=== PATIENT | female | born 1980 | race Caucasian/White ===

== ENCOUNTER 2016-05-27 15:20 | Emergency (ER) | payer OTHER ==
[2016-05-27] MEDS ORDERED: CEPHALEXIN 250 MG CAPSULE PO STA (15:48)
[2016-05-27] MEDS ORDERED: IBUPROFEN 600 MG TABLET PO STA (15:48)
[2016-05-27] MEDS ORDERED: IBUPROFEN 600 MG TABLET PO ONE (15:50)
[2016-05-27] MEDS ORDERED: CEPHALEXIN 250 MG CAPSULE PO ONE (15:50)
== END 2016-05-27 15:54 | disposition home or self-care (01) ==
DX: M54.2 Cervicalgia (principal); I88.9 Nonspecific lymphadenitis, unspecified; F17.200 Nicotine dependence, unspecified, uncomplicated
CPT/HCPCS: 99283; A9270

== ENCOUNTER 2016-06-23 17:16 | Emergency (ER) | payer OTHER | END 2016-06-23 20:16 | disposition home or self-care (01) | DX: Z51.89 Encounter for other specified aftercare (principal); Z98.890 Other specified postprocedural states; Z87.891 Personal history of nicotine dependence ==

== ENCOUNTER 2016-07-23 22:31 | Emergency (ER) | payer OTHER ==
[2016-07-23] MEDS ORDERED: BACITRACIN OINT TOP STA (23:38)
== END 2016-07-23 23:43 | disposition home or self-care (01) ==
DX: Z48.01 Encounter for change or removal of surgical wound dressing (principal)

== ENCOUNTER 2017-04-22 17:41 | Emergency (ER) | payer OTHER ==
[2017-04-22 17:59] VITALS: BP 146/106
[2017-04-22] MEDS ORDERED: LIDOCAINE TOPICAL 4% 50 ML BOTTLE MM STA (18:59)
--- NOTE | 2017-04-22 19:01 | ED Physician Documentation ---
History of Present Illness - Stated complaint Stated Complaint: BILAT EAR PX/SORE THROAT - Chief complaint Chief Complaint: Heent - Additonal information Additional information: hx from pt 37 y/o f several days congestion and PND now with ear pain minimal cough denies preg Review of Systems Constitutional: denies: Fever Ears: reports: Ear pain Nose: reports: Congestion Throat: reports: Sore throat Respiratory: reports: Cough : denies: Now [facility] PD PAST MEDICAL HISTORY - Past Medical History Cardiovascular: Hypertension Respiratory: None Neuro: Headache/migraine Endocrine/Autoimmune: None GI: None 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 : None HEENT: None Psych: Anxiety, Post traumatic stress disorder, Other Musculoskeletal: None Derm: None - Past Surgical History Past Surgical History: Yes /OPTICAL EFFECTS LAYOUT PERSON: section, Hysterectomy - Present Medications Home Medications: Ambulatory Orders Medication Instructions Recorded Confirmed Alprazolam [Xanax] 0.5 mg PO DAILY 05/27/16 04/22/17 Atenolol 40 mg PO DAILY 05/27/16 04/22/17 Esomeprazole Magnesium [Nexium 20 mg PO DAILY 05/27/16 04/22/17 24Hr] FLUoxetine [PROzac] 20 mg PO DAILY 05/27/16 04/22/17 Rizatriptan Benzoate [Maxalt] 10 mg PO DAILY 05/27/16 04/22/17 traMADol [Ultram] 50 mg PO Q4-6H PRN 05/27/16 04/22/17 Ibuprofen [Motrin] 600 mg PO TID PRN 06/23/16 04/22/17 Azithromycin [Zithromax] 250 mg PO DAILY #6 tablet 04/22/17 Lisinopril DAILY 04/22/17 Oxymetazoline HCl [Afrin] 2 spray NS BID PRN #1 bottle 04/22/17 - Allergies Allergies/Adverse Reactions: Allergies Allergy/AdvReac Type Severity Reaction Status Date / Time codeine Allergy Headache Verified 04/22/17 18:11 morphine Allergy Unknown Verified 04/22/17 18:11 - Social History Does the pt smoke?: No Smoking Status: Never smoker Does the pt drink ETOH?: Yes Does the pt have substance abuse?: No - Immunizations Immunizations are current?: Yes - POLST Patient has POLST: No PD ED PE NORMAL - Vitals Vital signs reviewed: Yes - HEENT HEENT: Pharynx benign (mild erythema s exudate). No: Ears normal (R TM erythematous and dull, L TM retracted s erythema) - Neck Neck: Supple, no meningeal sign - Cardiac Cardiac: RRR - Respiratory Respiratory: No respiratory distress, Clear bilaterally Results - Vitals Vitals: Vital Signs - 24 hr 04/22/17 17:56 Temperature 36.4 C L Heart Rate 73 Respiratory 18 Rate Blood Pressure 146/106 H O2 Saturation 100 Oxygen O2 Source Room air Departure - Departure Disposition: Home, Self Care Condition: Good Instructions: ED Otitis Media Acute Ch Follow-Up: Acosta Riojas DO [Primary Care Provider] - Prescriptions: Azithromycin [Zithromax] 250 mg PO DAILY #6 tablet Oxymetazoline HCl [Afrin] 2 spray NS BID PRN #1 bottle PRN Reason: nasal sinus ear congestion Comments: Motrin and tylenol as needed for pain Please get your blood pressure rechecked - it was high today
[2017-04-22] MEDS ORDERED: IBUPROFEN 400 MG TABLET PO STA (19:02)
[2017-04-22] MEDS ORDERED: OXYMETAZOLINE NASAL SPRAY NAS STA (19:02)
== END 2017-04-22 19:10 | disposition home or self-care (01) ==
LOC: ED 17:41
DX: H66.90 Otitis media, unspecified, unspecified ear (principal); I10 Essential (primary) hypertension
CPT/HCPCS: 99283; A9270

== ENCOUNTER 2018-02-22 23:00 | Emergency (ER) | payer OTHER ==
[2018-02-22] MEDS ORDERED: FLUCONAZOLE 100 MG TABLET PO STA (23:44)
[2018-02-22 23:45] LABS: BILIRUBIN,URINE NEGATIVE (NEGATIVE); GLUCOSE, URINE (UA) NEGATIVE (NEGATIVE); KETONES,URINE (UA) NEGATIVE (NEGATIVE); LEUKOCYTE ESTERASE, URINE MODERATE (NEGATIVE); NITRITE,URINE NEGATIVE (NEGATIVE); OCCULT BLOOD,URINE TRACE-INTA (NEGATIVE); PROTEIN,URINE TRACE mg/dL (NEGATIVE); UROBILINOGEN,URINE 0.2 (NORMAL) E.U./dL (NORMAL)
[2018-02-22 23:46] LABS: CLARITY,URINE CLEAR (CLEAR)
--- NOTE | 2018-02-22 23:47 | ED Physician Documentation ---
PD HPI FEMALE - Stated complaint Stated Complaint: FEMALE - Chief complaint Chief Complaint: Abd Pain - History obtained from History obtained from: Patient - History of Present Illness Timing - onset: How many weeks ago (1) Timing - duration: Weeks Timing - details: Gradual onset Pain level max: 5 Pain level max: 5 Associated symptoms: Vaginal pain, Vaginal discharge (itching) - Additional information Additional information: started after taking augmentin Review of Systems Constitutional: denies: Fever Respiratory: denies: Cough GI: denies: Vomiting, Diarrhea PD PAST MEDICAL HISTORY - Past Medical History Past Medical History: Yes Cardiovascular: Hypertension Respiratory: None Neuro: None Endocrine/Autoimmune: None GI: GERD 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 : None HEENT: None Psych: Anxiety, Post traumatic stress disorder, Other Musculoskeletal: None Derm: None - Past Surgical History Past Surgical History: Yes General: Gastric surgery /FIREWALL ADMINISTRATOR: section, Hysterectomy - Present Medications Home Medications: Ambulatory Orders Medication Instructions Recorded Confirmed Alprazolam [Xanax] 0.5 mg PO DAILY 05/27/16 04/22/17 Atenolol 40 mg PO DAILY 05/27/16 04/22/17 Esomeprazole Magnesium [Nexium 20 mg PO DAILY 05/27/16 04/22/17 24Hr] FLUoxetine [PROzac] 20 mg PO DAILY 05/27/16 04/22/17 Rizatriptan Benzoate [Maxalt] 10 mg PO DAILY 05/27/16 04/22/17 Fluconazole [Diflucan] 150 mg PO ONCE #2 tablet 02/22/18 - Allergies Allergies/Adverse Reactions: Allergies Allergy/AdvReac Type Severity Reaction Status Date / Time banana Allergy Anaphylaxis Verified 02/22/18 23:15 codeine Allergy Headache Verified 04/22/17 18:11 morphine Allergy Unknown Verified 04/22/17 18:11 - Social History Does the pt smoke?: No Smoking Status: Never smoker Does the pt drink ETOH?: Yes Does the pt have substance abuse?: No - Immunizations Immunizations are current?: Yes - POLST Patient has POLST: No PD ED PE NORMAL - Vitals Vital signs reviewed: Yes - General General: Alert and oriented X 3, No acute distress - HEENT HEENT: Moist mucous membranes - Neck Neck: Supple, no meningeal sign - Cardiac Cardiac: RRR - Respiratory Respiratory: No respiratory distress, Clear bilaterally - Abdomen Abdomen: Soft, Non tender, Non distended - Female Female : Pt declined - Back Back: No CVA TTP - Derm Derm: Warm and dry - Neuro Neuro: Alert and oriented X 3 Results - Vitals Vitals: Vital Signs - 24 hr 02/22/18 02/22/18 23:10 23:52 Temperature 36.5 C 36.6 C Heart Rate 63 72 Respiratory 16 16 Rate Blood Pressure 174/105 H 150/98 H O2 Saturation 99 100 Oxygen O2 Source Room air - Labs Labs: Laboratory Tests 02/22/18 23:40 Urine Color YELLOW Urine Clarity CLEAR Urine pH 6.0 Ur Specific [place] >=1.030 H Urine Protein TRACE Urine Glucose (UA) NEGATIVE Urine Ketones NEGATIVE Urine Occult Blood TRACE-INTA Urine Nitrite NEGATIVE Urine Bilirubin NEGATIVE Urine Urobilinogen 0.2 (NORMAL) Ur Leukocyte Esterase MODERATE H Urine RBC 6-10 H Urine WBC 6-10 H Ur Squamous Epith Cells MANY Squamous H Urine Bacteria Few Urine Mucus Moderate Strands Ur Microscopic Review INDICATED Urine Culture Comments NOT INDICATED PD MEDICAL DECISION MAKING - ED course Complexity details: considered differential, d/w patient ED course: Patient is a 37-year-old female with what sounds like a vaginal yeast infection after taking Augmentin. Will place on Diflucan and see how she progresses. She declines a pelvic examination at this time, but does understand that if she fails to improve as expected, she will need to follow-up closely with her doctor for a full pelvic examination. Patient counseled regarding signs and symptoms for which I believe and urgent re-evaluation would be necessary. Patient with good understanding of and agreement to plan and is comfortable going home at this time This document was made in part using voice recognition software. While efforts are made to proofread this document, sound alike and grammatical errors may occur. Departure - Departure Disposition: 01 Home, Self Care Clinical Impression: Vaginal candidiasis Condition: Good Instructions: ED Vaginal Infec Fungal Sirena Follow-Up: Acosta Riojas DO [Primary Care Provider] - Within 1 week Prescriptions: Fluconazole [Diflucan] 150 mg PO ONCE #2 tablet Comments: Take medications as prescribed. Return if you worsen. Discharge Date/Time: 02/22/18 23:51
[2018-02-22 23:50] LABS: SQUAMOUS EPITHELIAL CELL,UR MANY Squamous (<= Few)
[2018-02-22 23:51] LABS: BACTERIA,URINE Few /HPF (None Seen); MUCUS,URINE Moderate Strands
[2018-02-22 23:53] VITALS: BP 150/98
== END 2018-02-22 23:51 | disposition home or self-care (01) ==
LOC: ED 23:00
DX: B37.3 Candidiasis of vulva and vagina (principal); I10 Essential (primary) hypertension
CPT/HCPCS: 81001; 99283; A9270; 81003; 87086

== ENCOUNTER 2018-04-22 14:54 | Emergency (ER) | payer OTHER ==
--- NOTE | 2018-04-22 16:27 | ED Physician Documentation ---
PD HPI ABD PAIN - Stated complaint Stated Complaint: DIZZINESS - Chief complaint Chief Complaint: General - History obtained from History obtained from: Patient - History of Present Illness Timing - onset: How many days ago (few days of feeling nauseated, stomach cramping, weak generally and lightheaded. Worse today and had feeling of blackened vision. Post chemo last Friday, and had some similar with prior courses. No fevers nor URI symptoms.) Timing - duration: Days Timing - details: Gradual onset, Still present Quality: Cramping Location: Epigastric, Periumbilical Radiation: No: Chest, Lower back Worsened by: Eating Associated symptoms: Nausea, Near syncope / syncope, Loss of appetite. No: Fever, Vomiting, Diarrhea, Melena, Dysuria Similar symptoms before: Diagnosis (chemo side effects, but not as badly as this time) Recently seen: Clinic (chemo last Friday.) Review of Systems Constitutional: reports: Fatigue. denies: Fever, Chills, Myalgias Nose: denies: Rhinorrhea / runny nose, Congestion Throat: denies: Sore throat Respiratory: denies: Cough GI: reports: Abdominal Pain (cramping at times), Nausea. denies: Vomiting, Diarrhea, Bloody / black stool : denies: Dysuria, Frequency Neurologic: reports: Generalized weakness, Near syncope. 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 : None HEENT: None Psych: Anxiety, Post traumatic stress disorder, Other Musculoskeletal: None Derm: None - Past Surgical History Past Surgical History: Yes General: Gastric surgery /RACECAR DRIVER: section, Hysterectomy - Present Medications Home Medications: Ambulatory Orders Medication Instructions Recorded Confirmed Alprazolam [Xanax] 0.5 mg PO DAILY 05/27/16 04/22/17 Atenolol 25 mg PO BID 05/27/16 04/22/17 FLUoxetine [PROzac] 20 mg PO DAILY 05/27/16 04/22/17 Rizatriptan Benzoate [Maxalt] 10 mg PO DAILY 05/27/16 04/22/17 Fluconazole [Diflucan] 150 mg PO ONCE #2 tablet 02/22/18 Dexamethasone 8 mg PO 04/22/18 Ibuprofen 400 mg PO Q6HR PRN 04/22/18 04/22/18 LORazepam [Lorazepam] 0.5 mg PO Q6HR 04/22/18 04/22/18 Multivitamin [Daily Multiple 1 tab PO DAILY 04/22/18 04/22/18 Vitamin] Ondansetron Odt [Zofran] 4 mg TL Q6H PRN #20 tablet 04/22/18 Ondansetron [Ondansetron Odt] 8 mg PO Q8HR 04/22/18 04/22/18 Prochlorperazine [Compazine] 10 mg PO Q6HR 04/22/18 04/22/18 Scopolamine [Transderm-Scop] 1 mg 04/22/18 - Allergies Allergies/Adverse Reactions: Allergies Allergy/AdvReac Type Severity Reaction Status Date / Time banana Allergy Anaphylaxis Verified 04/22/18 15:08 codeine Allergy Headache Verified 04/22/18 15:08 morphine Allergy Unknown Verified 04/22/18 15:08 - Social History Does the pt smoke?: No Smoking Status: Never smoker Does the pt drink ETOH?: Yes Does the pt have substance abuse?: No - Immunizations Immunizations are current?: Yes - POLST Patient has POLST: No PD ED PE NORMAL - Vitals Vital signs reviewed: Yes - General General: Alert and oriented X 3, No acute distress, Well developed/nourished - HEENT HEENT: Pharynx benign. No: Moist mucous membranes - Neck Neck: Supple, no meningeal sign, No adenopathy - Cardiac Cardiac: RRR, No murmur - Respiratory Respiratory: Clear bilaterally - Abdomen Abdomen: Normal bowel sounds, Soft, Non tender, Non distended, No organomegaly - Back Back: No CVA TTP - Derm Derm: Normal color, Warm and dry - Extremities Extremities: No tenderness to palpate, Normal ROM s pain, No edema, No calf tenderness / cord - Neuro Neuro: Alert and oriented X 3, No motor deficit, Normal speech Results - Vitals Vitals: Oxygen O2 Source Room air - Labs Labs: Laboratory Tests 04/22/18 04/22/18 04/22/18 15:19 15:19 16:46 WBC 3.9 L RBC 3.32 L Hgb 9.9 L Hct 29.3 L MCV 88.2 MCH 29.8 MCHC 33.8 RDW 15.0 Plt Count 97 L MPV 7.3 L Neut # (Auto) Not Reportable Lymph # (Auto) Not Reportable [place] # (Auto) Not Reportable Eos # (Auto) Not Reportable Baso # (Auto) Not Reportable Absolute Nucleated RBC Not Reportable Total Counted 100 Band Neuts % (Manual) 4 Abnorm Lymph % (Manual) 0 Nucleated RBC % Not Reportable Neutrophils # (Manual) 3.7 Lymphocytes # (Manual) 0.2 L Monocytes # (Manual) 0.0 Eosinophils # (Manual) 0.0 Basophils # (Manual) 0.0 Differential Comment MANUAL DIFFERENTIAL WBC Morphology 1+ HYPERSEG NEUT Platelet Estimate DECREASED (<130,000) Platelet Morphology NORMAL APPEARANCE RBC Morph Micro Appear NORMAL APPEARANCE Sodium Potassium Chloride Carbon Dioxide Anion Gap BUN Creatinine Estimated GFR (MDRD) Glucose Calcium Magnesium 2.2 Total Bilirubin AST ALT Alkaline Phosphatase B-Natriuretic Peptide 72 Total Protein Albumin Globulin Albumin/Globulin Ratio Lipase Urine Color Urine Clarity Urine pH Ur Specific [place] Urine Protein Urine Glucose (UA) Urine Ketones Urine Occult Blood Urine Nitrite Urine Bilirubin Urine Urobilinogen Ur Leukocyte Esterase Ur Microscopic Review Urine Culture Comments Urine HCG, Qual 04/22/18 04/22/18 04/22/18 16:46 19:00 19:00 WBC RBC Hgb Hct MCV MCH MCHC RDW Plt Count MPV Neut # (Auto) Lymph # (Auto) [place] # (Auto) Eos # (Auto) Baso # (Auto) Absolute Nucleated RBC Total Counted Band Neuts % (Manual) Abnorm Lymph % (Manual) Nucleated RBC % Neutrophils # (Manual) Lymphocytes # (Manual) Monocytes # (Manual) Eosinophils # (Manual) Basophils # (Manual) Differential Comment WBC Morphology Platelet Estimate Platelet Morphology RBC Morph Micro Appear Sodium 133 L Potassium 4.0 Chloride 101 Carbon Dioxide 27 Anion Gap 5.0 L BUN 33 H Creatinine 0.7 Estimated GFR (MDRD) 94 Glucose 96 Calcium 8.8 Magnesium Total Bilirubin 0.2 AST 14 ALT 16 Alkaline Phosphatase 101 B-Natriuretic Peptide Total Protein 6.5 L Albumin 4.0 Globulin 2.5 Albumin/Globulin Ratio 1.6 Lipase 24 Urine Color YELLOW Urine Clarity CLEAR Urine pH 6.5 Ur Specific [place] 1.010 1.010 Urine Protein NEGATIVE Urine Glucose (UA) NEGATIVE Urine Ketones NEGATIVE Urine Occult Blood NEGATIVE Urine Nitrite NEGATIVE Urine Bilirubin NEGATIVE Urine Urobilinogen 0.2 (NORMAL) Ur Leukocyte Esterase NEGATIVE Ur Microscopic Review NOT INDICATED Urine Culture Comments NOT INDICATED Urine HCG, Qual NEGATIVE PD MEDICAL DECISION MAKING - ED course Complexity details: re-evaluated patient (feeling better with fluids and meds.), considered differential (seems ill and dehydrated post chemo. No fever but can check labs and UA. ), d/w patient, d/w family (spouse) Departure - Departure Disposition: 01 Home, Self Care Clinical Impression: Light-headed feeling, Dehydration, Status post chemotherapy Condition: Stable Record reviewed to determine appropriate education?: Yes Instructions: ED Dehydration Follow-Up: Acosta Riojas DO [Primary Care Provider] - Prescriptions: Ondansetron Odt [Zofran] 4 mg TL Q6H PRN #20 tablet PRN Reason: Nausea / Vomiting Comments: Stay well-hydrated. Continue usual medications. Add ondansetron if needed for nausea. Follow-up with your primary care or oncologist as planned. Return sooner if worsening. Discharge Date/Time: 04/22/18 20:26
[2018-04-22 16:49] LABS: BASOPHILS % (AUTO) 0.4 %; EOSINOPHILS % (AUTO) 0.1 %; HGB - HEMOGLOBIN 9.9 g/dL (12.0-16.0); LYMPHOCYTES % (AUTO) 6.3 %; MEAN CORPUSCULAR HEMOGLOBIN 29.8 pg (27.0-31.0); MEAN CORPUSCULAR HGB CONC 33.8 g/dL (32.0-36.0); MEAN CORPUSCULAR VOLUME 88.2 fL (81.0-99.0); MEAN PLATELET VOLUME 7.3 fL (7.9-10.8); MONOCYTES % (AUTO) 0.6 %; NEUTROPHILS % (AUTO) 92.6 %; PLT - PLATELET COUNT 97 10^3/uL (130-450); RED BLOOD COUNT 3.32 10^6/uL (4.20-5.40); WHITE BLOOD COUNT 3.9 x10^3/uL (4.8-10.8)
[2018-04-22] MEDS ORDERED: ONDANSETRON 4 MG/2 ML VIAL IVP STA (16:53)
[2018-04-22] MEDS ORDERED: SODIUM CHLORIDE 0.9% 1,000 ML IV ONE ×2 (16:53→16:55)
[2018-04-22 17:00] LABS: ABNORMAL LYMPHS % (MANUAL) 0 %
[2018-04-22 17:01] LABS: ALBUMIN/GLOBULIN RATIO 1.6 (1.0-2.2); BILIRUBIN,TOTAL 0.2 mg/dL (0.2-1.0); CALCIUM 8.8 mg/dL (8.5-10.3); CREATININE 0.7 mg/dL (0.4-1.0); TOTAL PROTEIN 6.5 g/dL (6.7-8.2)
[2018-04-22 18:02] LABS: BAND NEUTROPHILS % (MANUAL) 4 %; LYMPHOCYTES # (MANUAL) 0.2 10^3/uL (1.5-3.5); LYMPHOCYTES % (MANUAL) 6 %; NEUTROPHILS # (MANUAL) 3.7 10^3/uL (1.5-6.6); NEUTROPHILS % (MANUAL) 90 %
[2018-04-22 18:03] LABS: PLATELET ESTIMATE, MANUAL DECREASED (<130,000) (NORMAL); PLATELET MORPHOLOGY NORMAL APPEARANCE (NORMAL); RBC MORPHOLOGY (MULTIPLE) NORMAL APPEARANCE (NORMAL)
[2018-04-22 18:04] LABS: DIFFERENTIAL COMMENT MANUAL DIFFERENTIAL
--- NOTE | 2018-04-22 18:07 | XRAY Report ---
Reason: lightheaded Procedure Date: 04/22/2018 Accession Number: [id number] / [id number] Procedure: XR - Chest 1 View X-Ray CPT Code: 02081 FULL RESULT: EXAM: CHEST RADIOGRAPHY EXAM DATE: 04/22/2018 05:10 PM. CLINICAL HISTORY: Lightheaded. COMPARISON: XR acute abdomen series 04/26/2012 9:51 PM. TECHNIQUE: 1 view. FINDINGS: Lungs/Pleura: No focal opacities evident. No pleural effusion. No pneumothorax. Mediastinum: Within exam limitations, the cardiomediastinal contour is normal. Other: Left chest port noted. IMPRESSION: No acute cardiopulmonary process. [facility]
[2018-04-22 19:07] LABS: BILIRUBIN,URINE NEGATIVE (NEGATIVE); GLUCOSE, URINE (UA) NEGATIVE (NEGATIVE); KETONES,URINE (UA) NEGATIVE (NEGATIVE); LEUKOCYTE ESTERASE, URINE NEGATIVE (NEGATIVE); NITRITE,URINE NEGATIVE (NEGATIVE); OCCULT BLOOD,URINE NEGATIVE (NEGATIVE); PH,URINE 6.5 PH (5.0-7.5); PROTEIN,URINE NEGATIVE (NEGATIVE); UROBILINOGEN,URINE 0.2 (NORMAL) E.U./dL (NORMAL)
[2018-04-22 19:09] LABS: CLARITY,URINE CLEAR (CLEAR); HCG UR QUAL NEGATIVE
[2018-04-22 19:57] VITALS: BP 95/58
== END 2018-04-22 20:26 | disposition home or self-care (01) ==
LOC: ED 14:54
DX: R42 Dizziness and giddiness (principal); E86.0 Dehydration; C50.919 Malignant neoplasm of unspecified site of unspecified female breast; I10 Essential (primary) hypertension; Z79.899 Other long term (current) drug therapy
CPT/HCPCS: 36415; 71045; 80053; 81001; 81003; 81025; 83690; 83735; 83880; 85025; 87086; 93005; 96361; 96374; 96375; 99283

== ENCOUNTER 2018-09-07 17:58 | Outpatient (CLI) | payer OTHER | END 2018-09-07 17:59 | disposition critical access hospital (66) | LOC: EMS 17:58 | PROVIDERS: ATTEND Surgery | DX: S01.21XA Laceration without foreign body of nose, initial encounter (principal); M25.562 Pain in left knee; R55 Syncope and collapse; W10.9XXA Fall (on) (from) unspecified stairs and steps, initial encounter | CPT/HCPCS: A0425; A0427 ==

== ENCOUNTER 2018-09-07 18:18 | Emergency (ER) | payer OTHER ==
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
[2018-09-07] MEDS ORDERED: SODIUM CHLORIDE 0.9% 1,000 ML IV ONE (18:44)
[2018-09-07 18:45] LABS: BASOPHILS % (AUTO) 0.4 %; EOSINOPHILS % (AUTO) 5.1 %; HGB - HEMOGLOBIN 12.2 g/dL (12.0-16.0); LYMPHOCYTES % (AUTO) 14.8 %; MEAN CORPUSCULAR HEMOGLOBIN 30.4 pg (27.0-31.0); MEAN CORPUSCULAR HGB CONC 33.8 g/dL (32.0-36.0); MEAN PLATELET VOLUME 7.5 fL (7.9-10.8); MONOCYTES % (AUTO) 10.1 %; NEUTROPHILS % (AUTO) 69.6 %; PLT - PLATELET COUNT 139 10^3/uL (130-450); RED BLOOD COUNT 4.01 10^6/uL (4.20-5.40); RED CELL DISTRIBUTION WIDTH 12.9 % (12.0-15.0); WHITE BLOOD COUNT 2.8 x10^3/uL (4.8-10.8)
[2018-09-07 18:50] LABS: ABNORMAL LYMPHS % (MANUAL) 0 %
[2018-09-07 18:55] LABS: ALBUMIN 4.2 g/dL (3.2-5.5); ALBUMIN/GLOBULIN RATIO 1.6 (1.0-2.2); BILIRUBIN,TOTAL 0.5 mg/dL (0.2-1.0); CALCIUM 9.4 mg/dL (8.5-10.3); CREATININE 0.9 mg/dL (0.4-1.0); TOTAL PROTEIN 6.9 g/dL (6.7-8.2)
[2018-09-07 19:32] LABS: BAND NEUTROPHILS % (MANUAL) 2 %; EOSINOPHILS # (MANUAL) 0.2 10^3/uL (0-0.7); LYMPHOCYTES # (MANUAL) 0.5 10^3/uL (1.5-3.5); LYMPHOCYTES % (MANUAL) 18 %; MONOCYTES # (MANUAL) 0.1 10^3/uL (0.0-1.0); NEUTROPHILS % (MANUAL) 69 %
[2018-09-07] MEDS ORDERED: ONDANSETRON 4 MG/2 ML VIAL IVP STA (19:32)
[2018-09-07 19:33] LABS: DIFFERENTIAL COMMENT MANUAL DIFFERENTIAL; PLATELET ESTIMATE, MANUAL NORMAL (130-450,000) (NORMAL); PLATELET MORPHOLOGY NORMAL APPEARANCE (NORMAL); RBC MORPHOLOGY (MULTIPLE) NORMAL APPEARANCE (NORMAL)
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
[2018-09-07] MEDS ORDERED: TETANUS/DIPHTHERIA/PERTUSSIS 0.5 ML SYRINGE IM ONE (20:15)
[2018-09-07 20:36] VITALS: BP 136/92
== END 2018-09-07 20:57 | disposition home or self-care (01) ==
LOC: EDUNIT# → ED 18:18
DX: S16.1XXA Strain of muscle, fascia and tendon at neck level, initial encounter (principal); S01.21XA Laceration without foreign body of nose, initial encounter; I10 Essential (primary) hypertension; R55 Syncope and collapse; C50.919 Malignant neoplasm of unspecified site of unspecified female breast; W10.9XXA Fall (on) (from) unspecified stairs and steps, initial encounter; Y93.89 Activity, other specified; Y92.009 Unspecified place in unspecified non-institutional (private) residence as the place of occurrence of the external cause
CPT/HCPCS: 12011; 36415; 70450; 72125; 80053; 80320; 83690; 85025; 90471; 93005; 96361; 96374; 99283; 99284

== ENCOUNTER 2018-10-13 04:15 | Emergency (ER) | payer OTHER ==
[2018-10-13 04:33] LABS: BILIRUBIN,URINE NEGATIVE (NEGATIVE); GLUCOSE, URINE (UA) NEGATIVE (NEGATIVE); KETONES,URINE (UA) NEGATIVE (NEGATIVE); LEUKOCYTE ESTERASE, URINE TRACE (NEGATIVE); NITRITE,URINE NEGATIVE (NEGATIVE); OCCULT BLOOD,URINE LARGE (NEGATIVE); PROTEIN,URINE 100 mg/dL (NEGATIVE); UROBILINOGEN,URINE 1 (NORMAL) E.U./dL (NORMAL)
[2018-10-13 04:43] LABS: CLARITY,URINE SL. CLOUDY (CLEAR)
[2018-10-13 04:53] LABS: BACTERIA,URINE Few /HPF (None Seen); RBC,URINE TNTC /HPF (0-5); SQUAMOUS EPITHELIAL CELL,UR NONE SEEN (<= Few)
[2018-10-13] MEDS ORDERED: SULFAMETH/TRIMETH DS 800/160 MG TABLET PO STA (05:22)
[2018-10-13] MEDS ORDERED: PHENAZOPYRIDINE 100 MG TABLET PO STA (05:22)
--- NOTE | 2018-10-13 05:25 | ED Physician Documentation ---
PD HPI FEMALE - Stated complaint Stated Complaint: FEM - Chief complaint Chief Complaint: UTI - History obtained from History obtained from: Patient - History of Present Illness Timing - onset: Enter time (99), Today Timing - duration: Hours Timing - details: Abrupt onset, Still present Associated symptoms: Dysuria, Urinary frequency, Hematuria Contributing factors: Hysterectomy Similar symptoms before: Diagnosis (UTI) Recently seen: Not recently seen - Additional information Additional information: 38-year-old female survivor of breast cancer has developed urinary urgency frequency and dysuria at about 1:00 in the morning she is been unable to sleep she is come to the emergency department this morning for treatment. She has had urinary tract infection about 1 month ago was treated with Cipro. She has had an issue previously when she was younger with a series of urinary tract infections and has had a long period where she has not had infections. Review of Systems Constitutional: reports: Chills, Myalgias. denies: Fever Eyes: denies: Decreased vision Ears: denies: Ear pain Nose: denies: Rhinorrhea / runny nose, Congestion Throat: denies: Sore throat Cardiac: denies: Chest pain / pressure, Palpitations Respiratory: denies: Dyspnea, Cough GI: reports: Vomiting. 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 : None HEENT: None Psych: Anxiety, Post traumatic stress disorder, Other Musculoskeletal: None Derm: None - Past Surgical History Past Surgical History: Yes General: Gastric surgery /LOSS PREVENTION RESEARCH ENGINEER: section, Hysterectomy, Mastectomy - Present Medications Home Medications: Ambulatory Orders Medication Instructions Recorded Confirmed Alprazolam [Xanax] 0.5 mg PO DAILY 05/27/16 09/07/18 Atenolol 25 mg PO BID 05/27/16 09/07/18 FLUoxetine [PROzac] 20 mg PO DAILY 05/27/16 09/07/18 Rizatriptan Benzoate [Maxalt] 10 mg PO DAILY 05/27/16 09/07/18 Ibuprofen 400 mg PO Q6HR PRN 04/22/18 09/07/18 LORazepam [Lorazepam] 0.5 mg PO Q6HR 04/22/18 09/07/18 Multivitamin [Daily Multiple 1 tab PO DAILY 04/22/18 09/07/18 Vitamin] Ondansetron Odt [Zofran] 4 mg TL Q6H PRN #20 tablet 04/22/18 09/07/18 Ondansetron [Ondansetron Odt] 8 mg PO Q8HR 04/22/18 09/07/18 Prochlorperazine [Compazine] 10 mg PO Q6HR 04/22/18 09/07/18 Scopolamine [Transderm-Scop] 1 mg 04/22/18 dexAMETHasone [Dexamethasone] 8 mg PO DAILY 04/22/18 09/07/18 Sulfamethoxazole/Trimethoprim 1 each PO BID #10 tablet 10/13/18 [Sulfamethoxazole-Tmp Ds Tablet] - Allergies Allergies/Adverse Reactions: Allergies Allergy/AdvReac Type Severity Reaction Status Date / Time banana Allergy Anaphylaxis Verified 10/13/18 04:20 codeine Allergy Headache Verified 10/13/18 04:20 morphine Allergy Unknown Verified 10/13/18 04:20 - Social History Does the pt smoke?: No Smoking Status: Never smoker Does the pt drink ETOH?: Yes Does the pt have substance abuse?: No - Immunizations Immunizations are current?: Yes Immunizations: TDAP >10years/unknown - POLST Patient has POLST: No PD ED PE NORMAL - Vitals Vital signs reviewed: Yes (normal ) - General General: Alert and oriented X 3, No acute distress, Well developed/nourished - HEENT HEENT: Atraumatic, PERRL, EOMI - Neck Neck: Supple, no meningeal sign, No bony TTP - Cardiac Cardiac: RRR, No murmur - Respiratory Respiratory: No respiratory distress, Clear bilaterally - Abdomen Abdomen: Soft, Non tender - Back Back: No CVA TTP, No spinal TTP - Derm Derm: Normal color, Warm and dry, No rash - Extremities Extremities: No deformity, No edema, No calf tenderness / cord - Neuro Neuro: Alert and oriented X 3, 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 CLOUDY Urine pH 6.0 Ur Specific [place] >=1.030 H Urine Protein 100 H Urine Glucose (UA) NEGATIVE Urine Ketones NEGATIVE Urine Occult Blood LARGE H Urine Nitrite NEGATIVE Urine Bilirubin NEGATIVE Urine Urobilinogen 1 (NORMAL) Ur Leukocyte Esterase TRACE H Urine RBC TNTC H Urine WBC 6-10 H Ur Squamous Epith Cells NONE SEEN Urine Bacteria Few Ur Microscopic Review INDICATED Urine Culture Comments INDICATED PD MEDICAL DECISION MAKING - ED course Complexity details: reviewed results, re-evaluated patient, considered differential, d/w patient ED course: 38-year-old female with urinary tract infection is administered sulfamethoxazole trimethoprim and Pyridium in the emergency department and we will place her on a course of Septra. Departure - Departure Disposition: 01 Home, Self Care Clinical Impression: Urinary tract infection Qualifiers: Urinary tract infection type: acute cystitis Hematuria presence: with hematuria Qualified Code(s): N30.01 - Acute cystitis with hematuria Condition: Stable Instructions: ED UTI Cystitis Female Follow-Up: Magi Webster MD [Primary Care Provider] - Prescriptions: Sulfamethoxazole/Trimethoprim [Sulfamethoxazole-Tmp Ds Tablet] 1 each PO BID #10 tablet Forms: Activity restrictions
[2018-10-13 05:33] VITALS: BP 118/83
== END 2018-10-13 05:36 | disposition home or self-care (01) ==
LOC: ED 04:15
DX: N30.01 Acute cystitis with hematuria (principal); I10 Essential (primary) hypertension; Z08 Encounter for follow-up examination after completed treatment for malignant neoplasm; Z85.3 Personal history of malignant neoplasm of breast
CPT/HCPCS: 81001; 87086; 99283; 99284; A9270; 81003